=== PATIENT | female | born 1950 | race Two or more races ===

== ENCOUNTER 2021-05-17 20:03 | Inpatient (IN) | payer OTHER ==
[~2021-05-17] VITALS: Ht 157.5 cm; Wt 72.6 kg
--- NOTE | 2021-05-17 20:24 | NUR ---
PT TO ER BED 3 BIB DAUGHTER FROM HOME C/O HEADACHE, NAUSEA, AND FEELING "WEAK" SINCE TODAY. PATIENT IS ALERT AND ORIENTED X4. PATIENT IS AMBULATORY WITH A STEADY GAIT. PATIENT IS BREATHING EVENLY AND UNLABORED ON ROOM AIR. CONNECTED TO THE TRANSIT MECHANIC.
[2021-05-17] MEDS ORDERED: ONDANSETRON HCL/PF 4 MG/2 ML VIAL IVP ONE (20:30)
[2021-05-17] MEDS ORDERED: IV NS 0.9% 1,000 ML BAG IV ONE (20:30)
[2021-05-17] MEDS ORDERED: ONDANSETRON HCL/PF 4 MG/2 ML VIAL ONE (20:31)
--- NOTE | 2021-05-17 20:32 | NUR ---
BLOOD COLLECTED AND SENT TO THE LAB
--- NOTE | 2021-05-17 21:00 | NUR ---
COVID SWAB COLLECTED AND SENT TO THE LAB
[2021-05-17 21:03] LABS: BASOPHILS % (AUTO) 0.4 % (0.0-2.0); EOSINOPHILS % (AUTO) 0.5 % (0.0-6.0); HEMATOCRIT 44 % (33-45); HEMOGLOBIN 14.6 g/dL (11.5-14.8); LYMPHOCYTES # (AUTO) 1.7 K/uL (0.8-4.8); LYMPHOCYTES % (AUTO) 19.2 % (20.0-44.0); MEAN CORPUSCULAR HGB CONC 34 g/dl (31.0-36.0); MEAN CORPUSCULAR VOLUME 89 fL (82-100); MONOCYTES # (AUTO) 0.4 K/uL (0.1-1.30); MONOCYTES % (AUTO) 4.4 % (2.0-12.0); NEUTROPHILS # (AUTO) 6.7 K/uL (1.8-8.9); NEUTROPHILS % (AUTO) 75.5 % (43.0-81.0); PLATELET COUNT (AUTO) 288 K/uL (150-450); RED BLOOD CELL COUNT(AUTO) 4.88 MIL/uL (4.0-5.2); WHITE BLOOD COUNT (AUTO) 8.8 K/uL (4.3-11.0)
[2021-05-17] MEDS ORDERED: DILTIAZEM HCL 50 MG IV ONE (21:22)
[2021-05-17 21:30] LABS: ALANINE AMINOTRANSFERASE 121 U/L (12-78); ALBUMIN 4.2 g/dL (3.4-5.0); ALKALINE PHOSPHATASE 67 U/L (46-116); ASPARTATE AMINOTRANSFERASE 93 U/L (15-37); BILIRUBIN,DIRECT 0.1 mg/dL (0.0-0.2); BILIRUBIN,TOTAL 0.4 mg/dL (0.2-1.0); CALCIUM, SERUM 9.3 mg/dL (8.5-10.1); CARBON DIOXIDE 24 mmol/L (21-32); CHLORIDE 104 mmol/L (98-107); CREATININE 1.1 mg/dL (0.6-1.3); GLUCOSE 236 mg/dL (74-106); POTASSIUM 4.4 mmol/L (3.5-5.1); SODIUM SERUM 141 mmol/L (136-145); TOTAL PROTEIN, SERUM 8.9 g/dL (6.4-8.2); UREA NITROGEN, BLOOD 17 mg/dL (7-18)
[2021-05-17] MEDS ORDERED: DILTIAZEM HCL 25 MG IV IVP ONE (21:30)
[2021-05-17] MEDS ORDERED: DILTIAZEM HCL IV 125 MG in IV D5W 100 ML IV ONE (21:30)
--- NOTE | 2021-05-17 21:48 | NUR ---
ordered to hold Cardizem drip. Patient's HR is at 84. blood pressure at 111/71. will continue to monitor to patient.
--- NOTE | 2021-05-17 22:03 | NUR ---
DR. ONEILL PAGED PER ER ORDER.
--- NOTE | 2021-05-17 22:15 | NUR ---
JHOANA GRUBBS TALKING TO DR. ONEILL REGARDING PT ADMISSION.
--- NOTE | 2021-05-17 23:18 | NUR ---
patient's blood pressure at 126/84, HR notably at 119. MD orders carried out with cardizem drip at 5ml/hr. Will continue to monitor patient closely.
[2021-05-17] MEDS ORDERED: ONDANSETRON HCL/PF 4 MG/2 ML VIAL IVP PRN (23:30)
[2021-05-17] MEDS ORDERED: ZOLPIDEM TARTRATE 5 MG TABLET PO PRN (23:30)
[2021-05-17] MEDS ORDERED: MAG HYDROX/AL HYDROX/SIMETH 30 ML UDC PO PRN (23:30)
[2021-05-17] MEDS ORDERED: Z GUARD REMEDY 2 OZ OINT TP PRN (23:30)
[2021-05-17] MEDS ORDERED: MAGNESIUM HYDROXIDE 30 ML UDC PO PRN (23:30)
[2021-05-17] MEDS ORDERED: ACETAMINOPHEN 325 MG TABLET PO PRN (23:30)
--- NOTE | 2021-05-17 23:58 | NUR ---
Patient is resting. eyes are closed. VSS and will monitor closely. Breathing evenly and unlabored on room air. Call light is within reach. Bed at the lowest position.
--- NOTE | 2021-05-18 01:31 | NUR ---
STEPHANIE 116-1
--- NOTE | 2021-05-18 01:43 | NUR ---
REPORT GIVEN TO VAZQUEZ IZQUIERDO FOR PAOLA.
--- NOTE | 2021-05-18 01:45 | NUR ---
RN NOTE REPORT RECEIVED FROM FELECIA MACKAY. FOR PAOLA.
--- NOTE | 2021-05-18 02:25 | NUR ---
patient taken up to assigned room via ACLS protocols
--- NOTE | 2021-05-18 02:27 | NUR ---
RN NOTES PT BROUGHT TO [facility]IA [facility] ACCOMPANIED BY FELECIA MACKAY. PT IS ON ROOM AIR SHOWING NO S/S OF RESP DISTRESS/SOB. PT IS A&OX4. TELE MONITOR SHOWING A-FIB. CARDIZEM DRIP RUNNING AT 5ML/HR, A-FIB CURRENTLY CONTROLLED. PT IS AMBULATORY. SKIN IS INTACT. PT ON CARDIAC DIET. IV NOTED ON RIGHT AC GAUGE 18. IV LINE FLUSHED, PATENT, AND INTACT WITH NO SIGNS OF INFILTRATION. ALL SAFETY MEASURES IMPLEMENTED. CALL LIGHT WITHIN REACH. BED ALARM ON. BED LOCKED AND IN LOWEST POSITION. WILL CONTINUE TO MONITOR THROUGHOUT THE SHIFT.
[2021-05-18 02:35] VITALS: BP 133/87
[2021-05-18] MEDS ORDERED: ENOXAPARIN SODIUM 80 MG/0.8 ML DISP.SYRIN SQ ONE (03:00)
--- NOTE | 2021-05-18 03:41 | NUR ---
RN NOTE SPOKE WITH DR. ONEILL ABOUT PT BEING ON CARDIZEM 5ML DRIP AND A-FIB BEING CONTROLLED WITH HR IN 80s-90s. DR ONEILL ORDERED TO STOP CARDIZEM DRIP FOR NOW AND MONITOR HR. PER M/D ORDER, OKAY TO D/C CARDIZEM DRIP IF HR STAYS WNL AND TO CONTINUE CARDIZEM PO IN AM. WILL CARRY OUT ORDER AND CONTINUE TO MONITOR.
[2021-05-18 04:00] VITALS: BP 124/79
--- NOTE | 2021-05-18 06:47 | NUR ---
RN NOTES NO CHANGES IN PT CONDITION DURING SHIFT. PT IS ON ROOM AIR SHOWING NO S/S OF RESP DISTRESS/SOB WITH O2 SATURATION >97%. PT IS ON TELE MONITOR SHOWING A-FIB. IV LINE ON RIGHT AC GAUGE 18 FLUSHED, PATENT, AND INTACT WITH NO INFILTRATION. ALL MEDS GIVEN ORDERED. PT KEPT CLEAN AND COMFORTABLE. ALL SAFETY MEASURES IMPLEMENTED. CALL LIGHT WITHIN REACH. BED ALARM ON. BED LOCKED AND IN LOWEST POSITION. WILL ENDORSE TO MORNING SHIFT RN FOR PAOLA.
--- NOTE | 2021-05-18 07:15 | NUR ---
RN NOTES CALLED [facility] @[phone]; SPOKE WITH FELECIA JAIN ( RECEIVING NURSE) AND PROVIDED ENDORSEMENT/TRANSFER REPORT. ALL PERTINENT INFO ABOUT PT GIVEN OVER THE PHONE. SHE REQUESTED TO FAX [employer] @[phone]; SENT REQUESTED. PT WILL BE ADMITTED IN ROOM 328#1 INSTEAD OF 326#2. SHE ALSO REQUESTED NOT TO REMOVE IV ACCESS OF PT. RN ACKNOWLEDGED. BUILDING STONECUTTER MADE AWARE. AWAITING FOR AMBULANCE TO BILL DISTRIBUTOR Addendum: 05/18/21 at 1938 by JAYA MUNIZ RN ASSESSED IV LINE; NON-NON PATENT AND PT FEELS DISCOMFORT AND PAIN FROM IV SITE. IV SITE REMOVED AND SECURED WITH DRY DRESSING AND TAPE. Addendum: 05/18/21 at 1938 by JAYA MUNIZ RN CORRECTION TIME IS 1914.
[2021-05-18 07:20] LABS: BASOPHILS % (AUTO) 0.4 % (0.0-2.0); EOSINOPHILS % (AUTO) 1.4 % (0.0-6.0); HEMATOCRIT 38 % (33-45); HEMOGLOBIN 12.9 g/dL (11.5-14.8); LYMPHOCYTES # (AUTO) 2.8 K/uL (0.8-4.8); LYMPHOCYTES % (AUTO) 41.4 % (20.0-44.0); MEAN CORPUSCULAR HGB CONC 34 g/dl (31.0-36.0); MEAN CORPUSCULAR VOLUME 89 fL (82-100); MONOCYTES # (AUTO) 0.5 K/uL (0.1-1.30); MONOCYTES % (AUTO) 6.9 % (2.0-12.0); NEUTROPHILS # (AUTO) 3.4 K/uL (1.8-8.9); NEUTROPHILS % (AUTO) 49.9 % (43.0-81.0); PLATELET COUNT (AUTO) 238 K/uL (150-450); RED BLOOD CELL COUNT(AUTO) 4.29 MIL/uL (4.0-5.2); WHITE BLOOD COUNT (AUTO) 6.8 K/uL (4.3-11.0)
[2021-05-18 07:39] LABS: CALCIUM, SERUM 8.4 mg/dL (8.5-10.1); CREATININE 0.7 mg/dL (0.6-1.3); PHOSPHORUS 3.3 mg/dL (2.5-4.9)
--- NOTE | 2021-05-18 08:01 | NUR ---
TELE/RN OPENING NOTES RECEIVED PATIENT IN BED. PT IS ON ROOM AIR SHOWING NO S/S OF RESP DISTRESS/SOB WITH O2 SATURATION >97%. PT IS ON TELE MONITOR SHOWING A-FIB. IV LINE ON RIGHT AC GAUGE 18 FLUSHED, PATENT, AND INTACT WITH NO INFILTRATION. ALL MEDS GIVEN ORDERED. PT KEPT CLEAN AND COMFORTABLE. ALL SAFETY MEASURES IMPLEMENTED. CALL LIGHT WITHIN REACH. BED ALARM ON. BED LOCKED AND IN LOWEST POSITION. WILL CONTINUE TO MONITOR PATIENT.
[2021-05-18 08:44] VITALS: BP 115/80
[2021-05-18] MEDS ORDERED: GLIP5TAB13 PO (08:50)
[2021-05-18] MEDS ORDERED: METF-442 PO (08:50)
[2021-05-18] MEDS ORDERED: DILTIAZEM HCL CD 120 MG PO SCH (09:00)
[2021-05-18 12:34] VITALS: BP 125/89
[2021-05-18 16:18] VITALS: BP 122/84
--- NOTE | 2021-05-18 19:15 | NUR ---
RN NOTES CALLED [facility] @[phone]; SPOKE WITH FELECIA JAIN ( RECEIVING NURSE) AND PROVIDED ENDORSEMENT/TRANSFER REPORT. ALL PERTINENT INFO ABOUT PT GIVEN OVER THE PHONE. SHE REQUESTED TO FAX [employer] @[phone]; SENT REQUESTED. PT WILL BE ADMITTED IN ROOM 328#1 INSTEAD OF 326#2. SHE ALSO REQUESTED NOT TO REMOVE IV ACCESS OF PT. RN ACKNOWLEDGED. PIE DOUGH ROLLER MADE AWARE. AWAITING FOR AMBULANCE TO LEAD FRONT END DEVELOPER Addendum: 05/18/21 at 1939 by JAYA MUNIZ RN ASSESSED IV LINE; NON-NON PATENT AND PT FEELS DISCOMFORT AND PAIN FROM IV SITE. IV SITE REMOVED AND SECURED WITH DRY DRESSING AND TAPE.
--- NOTE | 2021-05-18 19:17 | NUR ---
TELE/RN CLOSING NOTES PATIENT IN BED. PT IS ON ROOM AIR SHOWING NO S/S OF RESP DISTRESS/SOB WITH O2 SATURATION >97%. PT IS ON TELE MONITOR SHOWING A-FIB. ORDERED TRANSFER TO [facility]. IV LINE ON RIGHT AC GAUGE 18 FLUSHED, PATENT, AND INTACT WITH NO INFILTRATION. ALL MEDS GIVEN ORDERED. PT KEPT CLEAN AND COMFORTABLE. ALL SAFETY MEASURES IMPLEMENTED. CALL LIGHT WITHIN REACH. BED ALARM ON. BED LOCKED AND IN LOWEST POSITION. PATIENT WILL BE PICKED UP BY THE EMT ANYTIME SOON. ENDORSE TO THE NEXT SHIFT.
[2021-05-18 20:00] VITALS: BP 123/88
--- NOTE | 2021-05-18 20:25 | NUR ---
RN NOTE PATIENT DISCHARGE TO [facility] IN STABLE CONDITION AND VITAL SIGNS WNL, ALERT ORIENTED X4 ON ROOM AIR, NO ACUTE DISTRESS NOTED, BREATHING UNLABORED. DISCHARGE INSTRUCTIONS GIVEN INCLUDING HEALTH TEACHINGS, ALSO PROVIDED DISCHARGE PACKET WHICH INCLUDES MED RECORDS AND PRESCRIPTION. ALL BELONGINGS ACCOUNTED FOR. IV ACCESS REMOVED, NO REDNESS, NO BLEEDING, NO SWELLING NOTED. PICKED UP VIA AMBULANCE IN A GURNEY ACCOMPANIED BY 2 EMT PERSONNEL IN STABLE CONDITION. HUMAN RESOURCES DISTRICT MANAGER MADE AWARE.
[2021-05-18] MEDS ORDERED: ENOXAPARIN SODIUM 80 MG/0.8 ML DISP.SYRIN SQ SCH (21:00)
== END 2021-05-18 20:44 | disposition short-term general hospital (02) | DRG 310 ==
LOC: ER 20:07 → TELE1 05-18 02:06 → TELE-TD 05-18 02:12 → TELE1 05-18 07:15
PROVIDERS: ADMIT Family Medicine
DX: I48.91 Unspecified atrial fibrillation (principal); F41.9 Anxiety disorder, unspecified; E78.5 Hyperlipidemia, unspecified; E66.9 Obesity, unspecified; R73.9 Hyperglycemia, unspecified; Z20.822 Contact with and (suspected) exposure to COVID-19; R74.01 Elevation of levels of liver transaminase levels; Z68.29 Body mass index [BMI] 29.0-29.9, adult
CPT/HCPCS: 36415; 71045-TC; 80048-TC; 80061-TC; 80076-TC; 82962-TC; 83735-TC; 84100-TC; 84484-TC; 85025-TC; 85730-TC; 87081-TC; 93307-TC; C9803; G0378; J1650; J2405; J3490; J7030; J7060